=== PATIENT | male | born 1945 | race Caucasian/White ===

== ENCOUNTER 2017-05-12 14:09 | Inpatient (IN) | payer MEDICARE ==
[2017-05-12 15:30] LABS: ADD MAN DIFF? NO
[2017-05-12 15:34] LABS: BASO % 1 % (0-3); EOS # 0.2 x10^3/uL (0.0-0.7); EOS % 3 % (0-3); HEMATOCRIT 36.7 % (39.0-53.0); HEMOGLOBIN 12.1 g/dL (13.0-17.5); LYMPH # 1.6 x10^3/uL (1.0-4.8); LYMPH % 27 % (24-48); MEAN CORPUSCULAR HEMOGLOBIN 29 pg (25-35); MEAN CORPUSCULAR HGB CONC 33 g/dL (31-37); MEAN CORPUSCULAR VOLUME 87 fL (79-100); MONO # 0.6 x10^3/uL (0.0-1.1); MONO % 10 % (0-9); NEUT # 3.6 x10^3uL (1.8-7.7); NEUT % 60 % (31-73); PLATELET COUNT 198 x10^3/uL (140-400); RED CELL DISTRIBUTION WIDTH 15.8 % (11.5-14.5); WHITE BLOOD COUNT 5.9 x10^3/uL (4.0-11.0)
[2017-05-12 15:45] LABS: INR 1.1 (0.8-1.1); PARTIAL THROMBOPLASTIN TIME 28 SEC (24-38); PROTHROMBIN TIME PATIENT 13.7 SEC (11.7-14.0)
[2017-05-12 15:47] LABS: ANION GAP 6 (6-14); BLOOD UREA NITROGEN 14 mg/dL (8-26); BUN/CREATININE RATIO 14 (6-20); CARBON DIOXIDE 28 mmol/L (21-32); CHLORIDE 107 mmol/L (98-107); GFR 73.5; GLUCOSE 136 mg/dL (70-99); SODIUM 141 mmol/L (136-145)
[2017-05-12 15:53] LABS: ALBUMIN 3.3 g/dL (3.4-5.0); ALK PHOS 52 U/L (46-116); ALT (SGPT) 16 U/L (16-63); AST (SGOT) 22 U/L (15-37); LIPASE 139 U/L (73-393); MAGNESIUM 2.1 mg/dL (1.8-2.4); TOTAL BILIRUBIN 0.7 mg/dL (0.2-1.0); TOTAL PROTEIN 6.7 g/dL (6.4-8.2)
[2017-05-12 16:00] LABS: NT-PRO BNP 39 pg/mL (0-124); THYROID STIM HORMONE (TSH) 1.079 uIU/mL (0.358-3.74)
[2017-05-12 16:01] LABS: TROPONINI < 0.017 ng/mL (0.000-0.055)
[2017-05-12] MEDS: MORPHINE SULFATE 4 MG/ML DISP.SYRIN. IV (16:26)
[2017-05-12] MEDS: ONDANSETRON PF 4 MG/2 ML VIAL. IV (16:26)
[2017-05-12] MEDS ORDERED: fentaNYL PF VIAL 100 MCG/2 ML VIAL IV (16:30)
[2017-05-12] MEDS ORDERED: ONDANSETRON PF 4 MG/2 ML VIAL. IV (16:30)
[2017-05-12 21:05] LABS: TROPONINI < 0.017 ng/mL (0.000-0.055)
[2017-05-13 00:35] LABS: TROPONINI < 0.017 ng/mL (0.000-0.055)
[2017-05-13 09:45] LABS: ADD MAN DIFF? NO
[2017-05-13 09:52] LABS: BASO % 1 % (0-3); EOS # 0.1 x10^3/uL (0.0-0.7); EOS % 2 % (0-3); HEMATOCRIT 42.3 % (39.0-53.0); HEMOGLOBIN 13.4 g/dL (13.0-17.5); LYMPH # 1.5 x10^3/uL (1.0-4.8); LYMPH % 24 % (24-48); MEAN CORPUSCULAR HEMOGLOBIN 28 pg (25-35); MEAN CORPUSCULAR HGB CONC 32 g/dL (31-37); MEAN CORPUSCULAR VOLUME 89 fL (79-100); MONO # 0.4 x10^3/uL (0.0-1.1); MONO % 6 % (0-9); NEUT # 4.4 x10^3uL (1.8-7.7); NEUT % 68 % (31-73); PLATELET COUNT 205 x10^3/uL (140-400); RED BLOOD COUNT 4.77 x10^6/uL (4.30-5.70); RED CELL DISTRIBUTION WIDTH 15.6 % (11.5-14.5); WHITE BLOOD COUNT 6.5 x10^3/uL (4.0-11.0)
[2017-05-13] MEDS ORDERED: MORPHINE IR 15 MG TABLET PO (10:00)
[2017-05-13 10:04] LABS: ANION GAP 5 (6-14); BLOOD UREA NITROGEN 11 mg/dL (8-26); CALCIUM 9.7 mg/dL (8.5-10.1); CARBON DIOXIDE 29 mmol/L (21-32); CHLORIDE 107 mmol/L (98-107); CREATININE 1.1 mg/dL (0.7-1.3); GFR 65.8; GLUCOSE 100 mg/dL (70-99); POTASSIUM 4.9 mmol/L (3.5-5.1); SODIUM 141 mmol/L (136-145)
[2017-05-13] MEDS: REGADENOSON 0.4 MG/5 ML DISP.SYRIN. IV ×2 (11:15→11:59)
[2017-05-13] MEDS: ASPIRIN ENTERIC COATED 325 MG TABLET.DR. PO (12:18)
[2017-05-13] MEDS: ENOXAPARIN 40 MG/0.4 ML SYRINGE. SQ (12:19)
[2017-05-13] MEDS: QUEtiapine 25 MG TABLET. PO ×2 (12:19→21:54)
[2017-05-14] MEDS: ASPIRIN ENTERIC COATED 325 MG TABLET.DR. PO (07:51)
[2017-05-14] MEDS: QUEtiapine 25 MG TABLET. PO (07:53)
[2017-05-14] MEDS: ENOXAPARIN 40 MG/0.4 ML SYRINGE. SQ (11:26)
== END 2017-05-14 15:03 | disposition home or self-care (01) | DRG 303 ==
LOC: ER 14:09 → 6 SOUTH 16:18
DX: I25.119 Atherosclerotic heart disease of native coronary artery with unspecified angina pectoris (principal); I11.0 Hypertensive heart disease with heart failure; I50.32 Chronic diastolic (congestive) heart failure; E66.9 Obesity, unspecified; F32.9 Major depressive disorder, single episode, unspecified; F41.9 Anxiety disorder, unspecified; F43.10 Post-traumatic stress disorder, unspecified; Z59.0 Homelessness; Z68.35 Body mass index [BMI] 35.0-35.9, adult; Z79.82 Long term (current) use of aspirin; Z95.5 Presence of coronary angioplasty implant and graft; Z88.6 Allergy status to analgesic agent; Z88.1 Allergy status to other antibiotic agents; Z88.0 Allergy status to penicillin; Z88.8 Allergy status to other drugs, medicaments and biological substances; I25.2 Old myocardial infarction
CPT/HCPCS: 36415; 71045; 78452; 80048; 80053; 83690; 83735; 83880; 84443; 84484; 85025; 85610; 85730; 93005; 93017; 96374; 96375; 96376; 97161-GP; 99285; 99285-25; A9500; J1650; J2270; J2405; J2785